=== PATIENT | female | born 1995 | race Caucasian/White ===

== ENCOUNTER → 2016-06-28 | Outpatient (CLI) | payer BC, OTHER ==
[~2016-06-28] VITALS: Ht 172.7 cm; Wt 132.0 kg
[~2016-06-28] MED LIST: CIPRO500 MG PO; NAPROSYN500 MG PO; OMEPRAZOLE10 M1 PO; ORTHO EVRA PA1 PATCH TP; ORTHO TRI-CYCL1 EACH PO; PRENATAL TABLE1 EAC3 PO; PROMETHAZINE HC25 M1 PO; TRAMADOL HCL50 MG PO
[2016-06-28 09:01] VITALS: BP 121/65
== END | disposition home or self-care (01) ==
LOC: IVINF 08:50
DX: Z31.82 Encounter for Rh incompatibility status (principal); Z3A.28 28 weeks gestation of pregnancy; Z67.41 Type O blood, Rh negative
CPT/HCPCS: 96372; J2790

== ENCOUNTER 2016-09-02 16:06 | Inpatient (IN) | payer BC, OTHER ==
[2016-09-02] VITALS (8 sets, daily range): BP systolic 106–126; BP diastolic 55–73
[~2016-09-02] VITALS: Ht 172.7 cm; Wt 140.0 kg
[2016-09-02 17:36] LABS: EOSINOPHIL (%) 1.1 % (0-5); EOSINOPHIL COUNT 0.1 K/uL (0-0.3); HEMATOCRIT 36.9 % (36.0-46.0); IMMATURE GRANULOCYTE (%) 0.8 % (0.0-0.7); IMMATURE GRANULOCYTE COUNT 0.1 K/uL; INSTRUMENT ABS NEUTROPHIL CT 4.7 K/uL; LYMPHOCYTE COUNT 1.8 K/uL (1.0-2.8); MCH 29.4 PG (29.0-34.0); MCHC 32.5 G/DL (30.0-36.0); MCV 90.4 FL (83-99); MEAN PLAT.VOLUME 11.1 uM^3 (9.5-12.4); MONOCYTE (%) 8.3 % (3-12); MONOCYTE COUNT 0.6 K/uL (0-0.8); NEUTROPHIL (%) 64.7 % (45-76); NEUTROPHIL COUNT 4.7 K/uL (1.8-6.4); PLATELET COUNT 158 K/uL (156-360); RBC DIS.WIDTH-CV 14.6 % (11.8-14.6); RBC DIS.WIDTH-SD 48.1 % (39-53); RED BLOOD COUNT 4.08 M/uL (3.80-5.20); WHITE BLOOD COUNT 7.2 K/uL (4.1-10.2)
[2016-09-03] VITALS (29 sets, daily range): BP systolic 100–145; BP diastolic 51–88
[2016-09-03] MEDS ORDERED: IBUPROFEN800 MG PO (20:03)
[2016-09-04 09:12] VITALS: BP 115/76
[2016-09-04 14:36] VITALS: BP 101/59
[2016-09-05 07:05] VITALS: BP 124/65
== END 2016-09-05 11:46 | disposition home or self-care (01) | DRG 775 ==
LOC: LDRP-OP → 2WEST 16:07 → LDRP-OP 10-18 16:49
PROVIDERS: Midwife
PROC: 3E0S3BZ Introduction of Anesthetic Agent into Epidural Space, Percutaneous Approach (ICD-10-PCS; 2016-09-01)
PROC: 3E0P7GC Introduction of Other Therapeutic Substance into Female Reproductive, Via Natural or Artificial Opening (ICD-10-PCS; 2016-09-02)
PROC: 10E0XZZ Delivery of Products of Conception, External Approach (ICD-10-PCS; principal; 2016-09-03)
DX: O41.03X1 Oligohydramnios, third trimester, fetus 1 (principal); O36.0931 Maternal care for other rhesus isoimmunization, third trimester, fetus 1; Z68.42 Body mass index [BMI] 45.0-49.9, adult; F33.9 Major depressive disorder, recurrent, unspecified; O99.214 Obesity complicating childbirth; E66.01 Morbid (severe) obesity due to excess calories; Z3A.37 37 weeks gestation of pregnancy; Z37.0 Single live birth; F41.0 Panic disorder [episodic paroxysmal anxiety]; K21.9 Gastro-esophageal reflux disease without esophagitis; O99.344 Other mental disorders complicating childbirth; O99.62 Diseases of the digestive system complicating childbirth; O69.81X0 Labor and delivery complicated by cord around neck, without compression, not applicable or unspecified; O36.8131 Decreased fetal movements, third trimester, fetus 1
CPT/HCPCS: 83030; 85025; 86870; 86900; 86901; C1755; G0378; J2405; J2790; J3010; J7120

== ENCOUNTER 2016-12-03 21:11 | Emergency (ER) | payer BC, OTHER ==
[~2016-12-03] VITALS: Ht 175.3 cm; Wt 132.9 kg
[~2016-12-03 21:11] MED LIST changes: +IBUPROFEN800 MG PO
[2016-12-03] MEDS ORDERED: MEDROL DOSEPAK4 MG PO (22:51)
[2016-12-03] MEDS ORDERED: PERCOCET 5/31 TABLET PO (22:51)
[2016-12-03] MEDS ORDERED: FLEXERIL10 MG PO (22:51)
[2016-12-03] MEDS ORDERED: NORCO 5/3251 TABLET PO (23:02)
[2016-12-03 23:15] VITALS: BP 144/89
== END 2016-12-03 23:15 | disposition home or self-care (01) ==
LOC: EME 21:11
DX: M54.5 Low back pain (principal)
CPT/HCPCS: 72100; 99281; 99283